=== PATIENT | male | born 1955 | race Caucasian/White ===

== ENCOUNTER 2022-07-19 08:03 | Emergency (ER) | payer OTHER ==
[~2022-07-19] VITALS: Ht 162.6 cm; Wt 81.6 kg
[2022-07-19 08:03] VITALS: BP_SYST 136
--- NOTE | 2022-07-19 08:03 | NUR ---
BROUGHT IN BY [facility] AND TRIAGED. REPORT GIVEN TO ZANDRA
--- NOTE | 2022-07-19 08:10 | NUR ---
PT STATES WHILE WORKING AT [employer], HE FELL OFF LOADING DOCK LANDING ON LEFT SHOULDER. LIMITED ROM DUE TO PAIN, +DEFORMITY
--- NOTE | 2022-07-19 08:22 | NUR ---
PT AMBULATED TO RESTROOM FOR EVALUATION
[2022-07-19] MEDS ORDERED: ONDANSETRON HCL 4 MG/2 ML VIAL IVP ONE (08:30)
[2022-07-19] MEDS ORDERED: MORPHINE 4 MG INJ. 4 MG/ML VIAL IVP ONE (08:30)
[2022-07-19] MEDS ORDERED: MORPHINE SULFATE 10 MG/ML VIAL ONE (08:44)
--- NOTE | 2022-07-19 08:45 | NUR ---
Pt c/o 01/18 pain. RN notified to medicate per MD order.
--- NOTE | 2022-07-19 08:58 | NUR ---
# 20 gauge angiocath placed to RAC. Use of asceptic technique. Opsite placed over site. Blood return noted. Blood for lab drawn from site. Flushed with 10 cc of normal saline. No evidence of infiltration noted. Patient tolerated well.
--- NOTE | 2022-07-19 09:00 | NUR ---
ER at bedside examining patient.
--- NOTE | 2022-07-19 09:00 | NUR ---
Radiology notes sedation neccessary for further analysis.
--- NOTE | 2022-07-19 10:21 | NUR ---
Patient given written and verbal discharge instructions and verbalizes understanding. ER MD discussed with patient the results and treatment provided. Patient in stable condition. ID arm band removed. IV catheter removed intact and dressing applied, no active bleeding. Rx of IBUPROFEN given. Patient educated on pain management and to follow up with PMD. Opportunity for questions provided and answered. Medication side effect fact sheet provided.
[2022-07-19 10:24] VITALS: BP_SYST 136
== END 2022-07-19 10:21 | disposition home or self-care (01) ==
LOC: SED 08:03
DX: S43.015A Anterior dislocation of left humerus, initial encounter (principal); Z79.899 Other long term (current) drug therapy; W01.0XXA Fall on same level from slipping, tripping and stumbling without subsequent striking against object, initial encounter; Y93.89 Activity, other specified; Y92.89 Other specified places as the place of occurrence of the external cause; Y99.8 Other external cause status
CPT/HCPCS: 99284; 23650; 96374; 96375; 73030; J2405; J2270